=== PATIENT | male | born 1935 | race African-American/Black ===

== ENCOUNTER 2017-10-31 07:52 | Emergency (ER) | payer MEDICARE, MEDICAID ==
[~2017-10-31] VITALS: Ht 180.3 cm; Wt 82.0 kg
[~2017-10-31 07:52] MED LIST: LEVO500T2 PO; METR500T PO; NEOSODR OP; TIMO15DR12 EACHEYE; TRAM50TA94 PO; TRAVO; UNK MEDS
[2017-10-31 11:30] LABS: CLARITY URINE CLEAR (CLEAR); COLOR URINE YELLOW (YELLOW); KETONES URINE NEGATIVE (NEGATIVE); LEUKOCYTE ESTERASE URINE NEGATIVE (NEGATIVE); NITRITE URINE NEGATIVE (NEGATIVE); OCCULT BLOOD URINE NEGATIVE (NEGATIVE); PROTEIN URINE NEGATIVE (NEGATIVE); SPECIFIC GRAVITY URINE 1.022 (1.005-1.030); UROBILINOGEN URINE 0.2 E.U./dL (0.2-1.0)
[2017-10-31 11:35] LABS: BASOPHILS % 1.2 % (0.0-2.0); EOSINOPHILS % 1.5 % (0.0-5.0); HEMATOCRIT. 41.5 % (42.0-52.0); HEMOGLOBIN. 13.9 g/dL (14.0-18.0); LYMPHOCYTES % 35.2 % (20.0-50.0); MEAN CORPUSCULAR VOLUME 83.6 fL (80.0-94.0); MEAN PLATELET VOLUME 10.3 fl (7.4-10.4); MONOCYTES % 9.3 % (2.0-8.0); NEUTROPHILS % 52.8 % (40.0-76.0); PLATELET 114 x1000/uL (130-400); RED BLOOD CELL COUNT 4.96 mill/uL (4.7-6.1); RED CELL DISTRIBUTION WIDTH 14.7 % (11.6-14.6)
[2017-10-31 11:39] LABS: CHLORIDE 103 mEq/L (98-107)
[2017-10-31 11:49] LABS: CANNABINOID URINE SCREEN NEGATIVE (NEGATIVE); METHADONE URINE SCREEN NEGATIVE (NEGATIVE); OPIATES URINE SCREEN NEGATIVE (NEGATIVE)
[2017-10-31 11:50] LABS: *BENZODIAZEPINES SCREEN URINE NEGATIVE (NEGATIVE)
[2017-10-31 11:52] LABS: *COCAINE SCREEN URINE NEGATIVE (NEGATIVE)
[2017-10-31 11:53] LABS: *AMPHETAMINES SCREEN URINE NEGATIVE (NEGATIVE)
[2017-10-31 12:11] LABS: *BARBITURATES SCREEN URINE NEGATIVE (NEGATIVE); PHENCYCLIDINE URINE SCREEN NEGATIVE (NEGATIVE)
[2017-10-31 13:05] LABS: INR 1.1; PROTHROMBIN TIME 11.4 sec (9.4-11.6)
[2017-10-31 13:30] VITALS: BP 158/84
== END 2017-10-31 13:52 | disposition home or self-care (01) ==
LOC: ER 09:16
DX: M94.0 Chondrocostal junction syndrome [Tietze] (principal); E86.0 Dehydration; E11.21 Type 2 diabetes mellitus with diabetic nephropathy; N17.0 Acute kidney failure with tubular necrosis; K21.9 Gastro-esophageal reflux disease without esophagitis; D69.6 Thrombocytopenia, unspecified; D72.819 Decreased white blood cell count, unspecified; R60.9 Edema, unspecified; R07.9 Chest pain, unspecified; R79.89 Other specified abnormal findings of blood chemistry; Z79.899 Other long term (current) drug therapy; Z87.891 Personal history of nicotine dependence
CPT/HCPCS: 36415; 71045; 80053; 80305; 81003; 83036; 83735; 83880; 84484; 85025; 85610; 87040; 87086; 93005; 99285

== ENCOUNTER 2019-03-14 12:04 | Inpatient (IN) | payer MEDICARE, MEDICAID ==
[~2019-03-14] VITALS: Ht 175.3 cm; Wt 77.1 kg
[2019-03-14] MEDS ORDERED: SODIUM CHLORIDE 0.9% 500 ML IV ONE (12:45)
[2019-03-14] MEDS ORDERED: DILTIAZEM HCL 5MG/ML 5ML VIAL IV ONE (13:00)
[2019-03-14] MEDS ORDERED: DILTIAZEM HCL 60MG TABLET PO ONE (13:30)
[2019-03-14 13:40] LABS: BASOPHILS % 1.3 % (0.0-2.0); EOSINOPHILS % 1.7 % (0.0-5.0); HEMATOCRIT. 48.6 % (42.0-52.0); HEMOGLOBIN. 16.2 g/dL (14.0-18.0); LYMPHOCYTES % 29.5 % (20.0-50.0); MEAN CORPUSCULAR HEMOGLOBIN 29.5 pg (28.0-32.0); MEAN CORPUSCULAR VOLUME 88.3 fL (80.0-94.0); MEAN PLATELET VOLUME 9.6 fl (7.4-10.4); MONOCYTES % 13.4 % (2.0-8.0); NEUTROPHILS % 54.1 % (40.0-76.0); PLATELET 142 x1000/uL (130-400); RED CELL DISTRIBUTION WIDTH 19.4 % (11.6-14.6)
[2019-03-14 13:48] LABS: CHLORIDE 104 mEq/L (98-107)
[2019-03-14 13:52] LABS: ETHANOL BLOOD < 10 mg/dL
[2019-03-14] MEDS ORDERED: ASPIRIN 325MG EC TABLET PO ONE (14:15)
[2019-03-14] MEDS ORDERED: MAGNESIUM/ALUMINUM HYDROXIDE/SIMETHICONE 30ML UDC PO PRN (16:00)
[2019-03-14] MEDS ORDERED: ENOXAPARIN 40MG/0.4ML SYR SUBCUT SCH (16:00)
[2019-03-14] MEDS ORDERED: CLONIDINE 0.1MG TABLET PO PRN (16:00)
[2019-03-14] MEDS ORDERED: ACETAMINOPHEN 325MG TABLET PO PRN (16:00)
[2019-03-14] MEDS ORDERED: ONDANSETRON HCL 4MG/2ML INJ IV PRN (16:00)
[2019-03-14] MEDS ORDERED: DOCUSATE SODIUM 100MG CAPSULE PO PRN (16:00)
[2019-03-14 16:30] VITALS: BP 118/67
[2019-03-14] MEDS: DILTIAZEM HCL 60MG TABLET PO SCH ×2 (16:58→21:04)
[2019-03-14] MEDS ORDERED: HYDROCODONE/ACETAMINOPHEN 5/325MG TABLET PO PRN (16:58)
[2019-03-14] MEDS ORDERED: DIGOXIN 500MCG/2ML AMP IV NR (16:58)
[2019-03-14 17:45] VITALS: BP 118/67
[2019-03-14 19:58] VITALS: BP 128/71
[2019-03-14] MEDS: PANTOPRAZOLE SODIUM 40 MG/VIAL IV SCH (21:04)
[2019-03-14] MEDS: SODIUM CHLORIDE 0.9% 1,000 ML IV SCH (21:04)
[2019-03-14 21:48] LABS: INR 1.1; PROTHROMBIN TIME 11.7 sec (9.6-11.0)
[2019-03-14] MEDS: ENOXAPARIN 80MG/0.8ML SYR SUBCUT SCH (23:43)
[2019-03-15] VITALS: BP 132/54
[2019-03-15 04:00] VITALS: BP 130/69
[2019-03-15] MEDS: DILTIAZEM HCL 60MG TABLET PO SCH ×3 (05:43→21:13)
[2019-03-15 06:20] LABS: BASOPHILS % 1.1 % (0.0-2.0); EOSINOPHILS % 2.5 % (0.0-5.0); HEMATOCRIT. 43.7 % (42.0-52.0); HEMOGLOBIN. 14.4 g/dL (14.0-18.0); LYMPHOCYTES % 31.9 % (20.0-50.0); MEAN CORPUSCULAR HEMOGLOBIN 29.2 pg (28.0-32.0); MEAN CORPUSCULAR VOLUME 88.5 fL (80.0-94.0); MEAN PLATELET VOLUME 9.7 fl (7.4-10.4); MONOCYTES % 12.3 % (2.0-8.0); NEUTROPHILS % 52.2 % (40.0-76.0); PLATELET 125 x1000/uL (130-400); RED BLOOD CELL COUNT 4.94 mill/uL (4.7-6.1); RED CELL DISTRIBUTION WIDTH 18.6 % (11.6-14.6)
[2019-03-15 06:21] LABS: CHLORIDE 108 mEq/L (98-107)
[2019-03-15 06:31] LABS: LDL CHOLESTEROL 40 mg/dL (5-100)
[2019-03-15 06:33] LABS: HDL CHOLESTEROL 58 mg/dL (40-59)
[2019-03-15 08:00] VITALS: BP 117/50
[2019-03-15] MEDS: PANTOPRAZOLE SODIUM 40 MG/VIAL IV SCH (08:18)
[2019-03-15] MEDS: ENOXAPARIN 80MG/0.8ML SYR SUBCUT SCH (08:18)
[2019-03-15] MEDS ORDERED: TRAVOPROST BOTHEYE SCH (10:00)
[2019-03-15] MEDS: SODIUM CHLORIDE 0.9% 1,000 ML IV SCH (10:47)
[2019-03-15 12:00] VITALS: BP 137/68
[2019-03-15] MEDS ORDERED: PNEUMOCOCCAL 23-VAL P-SAC VAC 0.5 ML IM ONE (12:45)
[2019-03-15 16:00] VITALS: BP 120/64
[2019-03-15 20:00] VITALS: BP 141/80
[2019-03-15] MEDS ORDERED: LATANOPROST 0.005% OPHTH DROPS 2.5ML BOTHEYE SCH (21:00)
[2019-03-15] MEDS: FAMOTIDINE 20MG/2ML VIAL IV SCH (21:12)
[2019-03-16] VITALS: BP 123/67
[2019-03-16 04:00] VITALS: BP_SYST 104; BP_SYST 130; BP_DIAS 47; BP_DIAS 82
[2019-03-16] MEDS: DILTIAZEM HCL 60MG TABLET PO SCH (05:27)
[2019-03-16 06:05] LABS: BASOPHILS % 0.4 % (0.0-2.0); EOSINOPHILS % 0.4 % (0.0-5.0); HEMATOCRIT. 42.1 % (42.0-52.0); LYMPHOCYTES % 10.5 % (20.0-50.0); MEAN CORPUSCULAR HEMOGLOBIN 29.3 pg (28.0-32.0); MEAN CORPUSCULAR VOLUME 87.6 fL (80.0-94.0); MEAN PLATELET VOLUME 9.9 fl (7.4-10.4); MONOCYTES % 9.5 % (2.0-8.0); NEUTROPHILS % 79.2 % (40.0-76.0); PLATELET 116 x1000/uL (130-400); RED CELL DISTRIBUTION WIDTH 18.7 % (11.6-14.6)
[2019-03-16 06:18] LABS: CHLORIDE 106 mEq/L (98-107)
[2019-03-16 06:23] LABS: PHOSPHORUS 2.3 mg/dL (2.5-4.9)
[2019-03-16 08:00] VITALS: BP 119/60
[2019-03-16] MEDS: FAMOTIDINE 20MG/2ML VIAL IV SCH (08:32)
[2019-03-16] MEDS ORDERED: TIMOLOL MALEATE 0.5% OPHTH DROPS 5ML EACHEYE SCH (09:00)
[2019-03-16] MEDS ORDERED: DILTIAZEM HCL 30MG TABLET PO SCH (10:00)
[2019-03-16 12:00] VITALS: BP 118/63
[2019-03-16] MEDS ORDERED: DILT30TA38 PO (15:58)
[2019-03-16 16:10] VITALS: BP 118/63
== END 2019-03-16 17:45 | disposition home or self-care (01) | DRG 309 ==
LOC: ER 12:04 → 5WST 14:15 → EDBEDREQ 14:18 → CANRESERV 15:32 → ENRESERV 15:32 → 6WST 03-15 17:15
PROVIDERS: ADMIT Specialist; ATTEND Specialist
DX: I48.0 Paroxysmal atrial fibrillation (principal); E44.1 Mild protein-calorie malnutrition; N17.9 Acute kidney failure, unspecified; K21.9 Gastro-esophageal reflux disease without esophagitis; I25.10 Atherosclerotic heart disease of native coronary artery without angina pectoris; I45.2 Bifascicular block; I45.10 Unspecified right bundle-branch block; J44.9 Chronic obstructive pulmonary disease, unspecified; I10 Essential (primary) hypertension; Z82.49 Family history of ischemic heart disease and other diseases of the circulatory system; Z90.49 Acquired absence of other specified parts of digestive tract
CPT/HCPCS: 36415; 71045; 80048; 80061; 80320; 83036; 83735; 83880; 84100; 84443; 84484; 93005; 93306; 93970; 96361; 96374; 97162; 97166; 99291; C9113; J1160; J1650; J3490; J7040; G0480

== ENCOUNTER 2019-04-22 12:35 | Emergency (ER) | payer MEDICARE, MEDICAID ==
[~2019-04-22] VITALS: Ht 177.8 cm; Wt 73.0 kg
[~2019-04-22 12:35] MED LIST changes: +DILT30TA38 PO; -LEVO500T2 PO; -METR500T PO; -UNK MEDS
[2019-04-22] MEDS ORDERED: SODIUM CHLORIDE 0.9% 500 ML IV ONE (13:30)
[2019-04-22 13:51] LABS: BASOPHILS % 0.8 % (0.0-2.0); EOSINOPHILS % 3.3 % (0.0-5.0); HEMATOCRIT. 45.3 % (42.0-52.0); LYMPHOCYTES % 36.1 % (20.0-50.0); MEAN CORPUSCULAR HEMOGLOBIN 29.1 pg (28.0-32.0); MEAN CORPUSCULAR VOLUME 87.9 fL (80.0-94.0); MEAN PLATELET VOLUME 10.7 fl (7.4-10.4); NEUTROPHILS % 51.8 % (40.0-76.0); PLATELET 80 x1000/uL (130-400); RED BLOOD CELL COUNT 5.15 mill/uL (4.7-6.1); RED CELL DISTRIBUTION WIDTH 14.6 % (11.6-14.6)
[2019-04-22 13:57] LABS: CHLORIDE 105 mEq/L (98-107)
[2019-04-22 13:58] LABS: INR 1.2; PARTIAL THROMBOPLASTIN TIME 26.3 sec (23.4-31.0); PROTHROMBIN TIME 11.9 sec (9.6-11.0)
[2019-04-22] MEDS ORDERED: LEVETIRACETAM 1000MG/100ML 100 ML IV ONE (14:15)
[2019-04-22] MEDS ORDERED: DILTIAZEM HCL 125 MG in DEXT 5% WATER 100 ML IV ONE (14:15)
[2019-04-22] MEDS ORDERED: DEXAMETHASONE 10 MG/ML VIAL IV ONE (14:15)
[2019-04-22] MEDS ORDERED: IOHEXOL-350 100 ML BOTTLE ONE (14:29)
[2019-04-22] MEDS ORDERED: DESMOPRESSIN ACETATE 4MCG/ML AMP IV ONE (15:30)
[2019-04-22] MEDS ORDERED: DESMOPRESSIN ACETATE IVPB 20 MCG in SODIUM CHLORIDE 0.9% 50 ML IV NR (16:00)
[2019-04-22] MEDS ORDERED: SUCCINYLCHOLINE CHLORIDE 200MG/10ML IV ONE (16:30)
[2019-04-22] MEDS ORDERED: PROPOFOL 10MG/ML 100ML 100 ML IV ONE (16:30)
[2019-04-22] MEDS ORDERED: ETOMIDATE 2MG/ML 10ML VIAL IV ONE (16:30)
[2019-04-22] MEDS ORDERED: LABETALOL 5MG/ML SYR 20 MG/4 ML SYRINGE IV ONE (16:45)
[2019-04-22 16:51] VITALS: BP 171/83
[2019-04-23] MEDS ORDERED: AMLODIPINE 5MG TABLET PO SCH (09:00)
== END 2019-04-22 17:10 | disposition short-term general hospital (02) ==
LOC: ER 12:35 → CANBEDREQ 04-23 00:08
DX: I60.6 Nontraumatic subarachnoid hemorrhage from other intracranial arteries (principal); R55 Syncope and collapse; I25.2 Old myocardial infarction; I51.9 Heart disease, unspecified; Z90.49 Acquired absence of other specified parts of digestive tract
CPT/HCPCS: 31500; 36415; 70450; 70496; 70498; 71045; 80053; 83690; 83880; 84484; 85025; 85610; 85730; 93005; 96365; 96375; 99291; J1100; J1953; J2597; J2704; J3490; J7040; J7060; Q9967